=== PATIENT | male | born 1965 | race Caucasian/White ===

== ENCOUNTER 2016-12-19 12:47 | Outpatient (CLI) | payer OTHER | END 2016-12-19 12:48 | disposition home or self-care (01) | DX: I10 Essential (primary) hypertension (principal); R06.00 Dyspnea, unspecified; R07.9 Chest pain, unspecified ==

== ENCOUNTER 2016-12-26 10:55 | Outpatient (CLI) | payer OTHER | END 2016-12-26 10:56 | disposition home or self-care (01) | DX: R06.00 Dyspnea, unspecified (principal); R07.9 Chest pain, unspecified ==

== ENCOUNTER 2017-07-31 21:37 | Outpatient (CLI) | payer OTHER | END 2017-07-31 21:38 | disposition critical access hospital (66) | LOC: EMS 21:37 | PROVIDERS: ATTEND Surgery | DX: R07.9 Chest pain, unspecified (principal); R06.02 Shortness of breath | CPT/HCPCS: A0425; A0427 ==

== ENCOUNTER 2017-07-31 22:00 | Emergency (ER) | payer OTHER ==
[2017-07-31] MEDS ORDERED: ASPIRIN CHEW 81 MG TABLET PO STA (22:08)
[2017-07-31 22:23] LABS: BASOPHILS % (AUTO) 0.4 %; EOSINOPHILS # (AUTO) 0.3 10^3/uL (0.0-0.7); EOSINOPHILS % (AUTO) 3.2 %; HCT - HEMATOCRIT 46.4 % (42.0-52.0); HGB - HEMOGLOBIN 15.7 g/dL (14.0-18.0); LYMPHOCYTES # (AUTO) 2.4 10^3/uL (1.5-3.5); LYMPHOCYTES % (AUTO) 23.9 %; MEAN CORPUSCULAR HEMOGLOBIN 30.7 pg (27.0-31.0); MEAN CORPUSCULAR HGB CONC 33.9 g/dL (32.0-36.0); MEAN CORPUSCULAR VOLUME 90.5 fL (80.0-94.0); MEAN PLATELET VOLUME 8.8 fL (7.4-11.4); MONOCYTES # (AUTO) 1.1 10^3/uL (0.0-1.0); MONOCYTES % (AUTO) 10.9 %; NEUTROPHILS # (AUTO) 6.2 10^3/uL (1.5-6.6); NEUTROPHILS % (AUTO) 61.6 %; RED BLOOD COUNT 5.13 10^6/uL (4.70-6.10); RED CELL DISTRIBUTION WIDTH 12.5 % (12.0-15.0)
[2017-07-31] MEDS ORDERED: ASPIRIN CHEW 81 MG TABLET ONE (22:23)
--- NOTE | 2017-07-31 22:29 | ED Physician Documentation ---
PD HPI CHEST PAIN - Stated complaint Stated Complaint: CP/PALP - Chief complaint Chief Complaint: Cardiac - History obtained from History obtained from: Patient, EMS - History of Present Illness Timing - onset: How many hours ago (1) Timing - onset during: Rest Timing - details: Abrupt onset, Now resolved Quality: Pressure, Indigestion Location: Substernal Improved by: Rest Worsened by: No: Exertion, Inspiration, Eating, Movement, Palpation, Position Associated symptoms: Shortness of air Similar symptoms before: Has not had sx before Recently seen: Not recently seen - Additional information Additional information: Patient is a 52 year old male with a 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 Patient states that tonight he had an episode of chest pressure and palpitations. Patient called ems. Patient states that the sensation is like have a burp that wont come up. Patient states that he had something like this once before but nothing came of it. Patient does admit to drinking every day and states that his last drink was earlier today. Review of Systems Constitutional: denies: Fever, Chills Eyes: denies: Decreased vision Ears: reports: Reviewed and negative Nose: reports: Reviewed and negative Throat: denies: Dental pain / toothache, Sore throat Cardiac: reports: Chest pain / pressure, Palpitations. denies: Pedal edema, Calf pain Respiratory: denies: Dyspnea, Cough, Wheezing GI: denies: Abdominal Pain, Nausea, Vomiting : reports: Reviewed and negative Skin: denies: Rash, Lesions Musculoskeletal: denies: Neck pain, Back pain, Extremity pain Neurologic: denies: Generalized weakness, Focal weakness, Numbness, Headache Psychiatric: reports: Anxiety PD PAST MEDICAL HISTORY - Past Medical History Past Medical History: Yes Cardiovascular: Hypertension, High cholesterol, Arrhythmia Respiratory: None Neuro: None Endocrine/Autoimmune: None GI: Ulcers : Kidney stones HEENT: None Psych: None Musculoskeletal: Rheumatoid arthritis Derm: None Other Past Medical History: WPW - Past Surgical History Past Surgical History: Yes General: Cholecystectomy, Appendectomy HEENT: Tonsil/Adenoidectomy - Present Medications Home Medications: Ambulatory Orders Medication Instructions Recorded Confirmed Atenolol [Tenormin] 25 mg PO ONCE 05/29/13 07/31/17 Diltiazem HCl [Taztia Xt] 120 mg PO DAILY 05/29/13 07/31/17 Meloxicam 15 mg PO DAILY 05/29/13 07/31/17 - Allergies Allergies/Adverse Reactions: Allergies Allergy/AdvReac Type Severity Reaction Status Date / Time latex Allergy Mild Rash Verified 07/31/17 22:24 - Social History Does the pt smoke?: No Smoking Status: Never smoker Does the pt drink ETOH?: Yes ETOH Use: Beer Does the pt have substance abuse?: No - Immunizations Immunizations are current?: Yes - POLST Patient has POLST: No PD ED PE NORMAL - Vitals Vital signs reviewed: Yes - General General: Alert and oriented X 3 - HEENT HEENT: Atraumatic, PERRL - Neck Neck: Supple, no meningeal sign, No JVD - Cardiac Cardiac: RRR, No murmur - Respiratory Respiratory: No respiratory distress, Clear bilaterally - Abdomen Abdomen: Soft, Non tender, Non distended - Derm Derm: Normal color, Warm and dry, No rash - Extremities Extremities: No deformity, Normal ROM s pain, No edema, No calf tenderness / cord - Neuro Neuro: Alert and oriented X 3, No motor deficit, No sensory deficit, Normal speech - Psych Psych: Normal mood, Normal affect PD ED PE EXPANDED - General General: Anxious Results - Vitals Vitals: Vital Signs - 24 hr 07/31/17 07/31/17 07/31/17 22:02 22:40 22:50 Temperature 36.4 C L Heart Rate 83 83 82 Respiratory 18 16 16 Rate Blood Pressure 132/91 H 130/87 H 120/81 H O2 Saturation 100 99 96 07/31/17 08/01/17 23:31 01:04 Temperature Heart Rate 72 78 Respiratory 14 17 Rate Blood Pressure 119/83 H 117/80 O2 Saturation 96 98 Oxygen O2 Source Room air - EKG (time done) 2208 Rate: Rate (enter#) (81) Rhythm: NSR Intervals: RBBB QRS: Normal Ischemia: Normal ST segments Compare to prior EKG: Unchanged from prior EKG 0105 Rate: Rate (enter#) (73) Rhythm: NSR [place]: Normal Intervals: RBBB QRS: Normal Ischemia: Normal ST segments Compare to prior EKG: Unchanged from prior EKG - Labs Labs: Laboratory Tests 07/31/17 07/31/17 07/31/17 22:14 22:14 22:14 WBC 10.0 RBC 5.13 Hgb 15.7 Hct 46.4 MCV 90.5 MCH 30.7 MCHC 33.9 RDW 12.5 Plt Count 192 MPV 8.8 Neut # 6.2 Lymph # 2.4 [place] # 1.1 H Eos # 0.3 Baso # 0.0 Absolute Nucleated RBC 0.00 Nucleated RBC % 0.0 Sodium 139 Potassium 3.8 Chloride 105 Carbon Dioxide 24 Anion Gap 10.0 BUN 17 Creatinine 0.9 Estimated GFR (MDRD) 89 Glucose 94 Calcium 9.3 Phosphorus 1.9 L Magnesium 2.4 Total Bilirubin 0.8 AST 36 ALT 41 Alkaline Phosphatase 56 Troponin I < 0.04 B-Natriuretic Peptide Total Protein 7.5 Albumin 4.4 Globulin 3.1 Albumin/Globulin Ratio 1.4 Lipase 54 H TSH Ethyl Alcohol 07/31/17 07/31/17 07/31/17 22:14 22:14 22:14 WBC RBC Hgb Hct MCV MCH MCHC RDW Plt Count MPV Neut # Lymph # [place] # Eos # Baso # Absolute Nucleated RBC Nucleated RBC % Sodium Potassium Chloride Carbon Dioxide Anion Gap BUN Creatinine Estimated GFR (MDRD) Glucose Calcium Phosphorus Magnesium Total Bilirubin AST ALT Alkaline Phosphatase Troponin I B-Natriuretic Peptide 12 Total Protein Albumin Globulin Albumin/Globulin Ratio Lipase TSH 1.05 Ethyl Alcohol < 5.0 08/01/17 00:48 WBC RBC Hgb Hct MCV MCH MCHC RDW Plt Count MPV Neut # Lymph # [place] # Eos # Baso # Absolute Nucleated RBC Nucleated RBC % Sodium Potassium Chloride Carbon Dioxide Anion Gap BUN Creatinine Estimated GFR (MDRD) Glucose Calcium Phosphorus Magnesium Total Bilirubin AST ALT Alkaline Phosphatase Troponin I < 0.04 B-Natriuretic Peptide Total Protein Albumin Globulin Albumin/Globulin Ratio Lipase TSH Ethyl Alcohol PD MEDICAL DECISION MAKING - ED course Complexity details: reviewed old records, reviewed results, re-evaluated patient , considered differential, d/w patient, d/w family ED course: Patient was seen and examined at bedside. IV access was gained and labs were drawn. ekg was performed which showed a rbbb, which was present on previous ekgs. patient's work-up including repeat 3 hour troponin and ekg were within normal limits. Patient was heart score of 1 and was stable for discharge and outpatient follow up. Departure - Departure Disposition: 01 Home, Self Care Clinical Impression: Chest pain Condition: Good Instructions: ED Chest Pain Atypical Unkn Cause Follow-Up: Everette So MD [Primary Care Provider] - Within 3 Days Comments: Your diagnostics today were within normal limits. this indicates that your pain being cardiac in nature is less likely. that being said it is only a snapshot in time and further outpatient work up may be necessary. You should follow up with your doctor in the next few days to schedule and echocardiogram and a stress test. You should return to the emergency department at any time for new, worsening or uncontrollable symptoms. Also your phosphorus was low and you should start taking a multivitamin.
[2017-07-31 22:34] LABS: ALBUMIN/GLOBULIN RATIO 1.4 (1.0-2.2); BILIRUBIN,TOTAL 0.8 mg/dL (0.2-1.0); CALCIUM 9.3 mg/dL (8.5-10.3); CREATININE 0.9 mg/dL (0.6-1.2); MAGNESIUM 2.4 mg/dL (1.7-2.8); PHOSPHORUS 1.9 mg/dL (2.5-4.6); POTASSIUM 3.8 mmol/L (3.5-5.0); TOTAL PROTEIN 7.5 g/dL (6.7-8.2)
[2017-07-31] MEDS ORDERED: NITROGLYCERIN SL 0.4 MG TABLET SL STA (22:37)
[2017-07-31] MEDS ORDERED: NITROGLYCERIN SL 0.4 MG TABLET SL ONE (22:43)
[2017-07-31] MEDS ORDERED: LORazepam 2 MG/ML SYRINGE IVP STA (22:45)
--- NOTE | 2017-07-31 22:49 | XRAY Preliminary Report ---
Exam: XR CHEST 2 VIEW PA/LAT IMPRESSION: Normal 2-view chest radiography. [facility] SITE ID: [id number]
[2017-07-31] MEDS ORDERED: LORazepam 2 MG/ML SYRINGE ONE (23:06)
[2017-07-31] MEDS ORDERED: SODIUM CHLORIDE FLUSH 0.9% 10 ML SYRINGE IVP ONE (23:07)
--- NOTE | 2017-07-31 23:19 | XRAY Report ---
EXAM: CHEST RADIOGRAPHY EXAM DATE: 07/31/2017 10:36 PM. CLINICAL HISTORY: Chest pressure. COMPARISON: None. TECHNIQUE: 2 views. FINDINGS: Lungs/Pleura: No focal opacities evident. No pleural effusion. No pneumothorax. Normal volumes. Mediastinum: Heart and mediastinal contours are unremarkable. Other: None. IMPRESSION: Normal 2-view chest radiography. [facility] Referring Provider Line: [phone] SITE ID: [id number]
[2017-08-01 01:44] VITALS: BP 122/81
== END 2017-08-01 01:35 | disposition home or self-care (01) ==
LOC: EDUNIT# → ED 22:00
DX: R07.9 Chest pain, unspecified (principal); I45.10 Unspecified right bundle-branch block; I10 Essential (primary) hypertension; E78.00 Pure hypercholesterolemia, unspecified; I45.6 Pre-excitation syndrome
CPT/HCPCS: 36415; 71020; 80053; 80320; 83690; 83735; 83880; 84100; 84443; 84484; 85025; 93005; 96374; 99284; 99285; A9270; J2060

== ENCOUNTER 2019-07-12 16:00 | Outpatient (CLI) | payer OTHER ==
[2019-07-12 18:44] LABS: BILIRUBIN,URINE NEGATIVE (NEGATIVE); GLUCOSE, URINE (UA) NEGATIVE (NEGATIVE); KETONES,URINE (UA) 15 mg/dL (NEGATIVE); LEUKOCYTE ESTERASE, URINE NEGATIVE (NEGATIVE); NITRITE,URINE NEGATIVE (NEGATIVE); OCCULT BLOOD,URINE MODERATE (NEGATIVE); PROTEIN,URINE NEGATIVE (NEGATIVE); UROBILINOGEN,URINE 0.2 (NORMAL) E.U./dL (NORMAL)
[2019-07-12 19:17] LABS: CLARITY,URINE HAZY (CLEAR)
[2019-07-12 19:27] LABS: BACTERIA,URINE None Seen /HPF (None Seen); SQUAMOUS EPITHELIAL CELL,UR NONE SEEN (<= Few)
== END 2019-07-12 23:59 | disposition home or self-care (01) ==
LOC: LAB.R 16:00
PROVIDERS: ATTEND Physician Assistant Medical
DX: R30.0 Dysuria (principal)
CPT/HCPCS: 81001; 81003; 87086

== ENCOUNTER 2019-07-14 09:57 | Outpatient (CLI) | payer OTHER ==
[2019-07-14 12:13] LABS: BASOPHILS # (AUTO) 0.1 10^3/uL (0.0-0.1); BASOPHILS % (AUTO) 0.6 %; EOSINOPHILS # (AUTO) 0.3 10^3/uL (0.0-0.7); EOSINOPHILS % (AUTO) 3.7 %; LYMPHOCYTES # (AUTO) 2.5 10^3/uL (1.5-3.5); LYMPHOCYTES % (AUTO) 29.9 %; MEAN CORPUSCULAR HEMOGLOBIN 30.1 pg (27.0-31.0); MEAN CORPUSCULAR HGB CONC 33.1 g/dL (32.0-36.0); MEAN PLATELET VOLUME 11.3 fL (7.4-11.4); MONOCYTES % (AUTO) 11.6 %; NEUTROPHILS # (AUTO) 4.5 10^3/uL (1.5-6.6); PLT - PLATELET COUNT 203 10^3/uL (130-450); RED BLOOD COUNT 5.64 10^6/uL (4.70-6.10); WHITE BLOOD COUNT 8.3 x10^3/uL (4.8-10.8)
[2019-07-14 12:23] LABS: BILIRUBIN,URINE NEGATIVE (NEGATIVE); GLUCOSE, URINE (UA) NEGATIVE (NEGATIVE); KETONES,URINE (UA) NEGATIVE (NEGATIVE); LEUKOCYTE ESTERASE, URINE NEGATIVE (NEGATIVE); NITRITE,URINE NEGATIVE (NEGATIVE); OCCULT BLOOD,URINE TRACE-INTA (NEGATIVE); PROTEIN,URINE 30 mg/dL (NEGATIVE); UROBILINOGEN,URINE 0.2 (NORMAL) E.U./dL (NORMAL)
[2019-07-14 12:24] LABS: CLARITY,URINE CLEAR (CLEAR)
[2019-07-14 12:32] LABS: CALCIUM 9.3 mg/dL (8.5-10.3); CREATININE 1.1 mg/dL (0.6-1.2)
[2019-07-14 12:35] LABS: BACTERIA,URINE Rare /HPF (None Seen); MUCUS,URINE Moderate Strands; SQUAMOUS EPITHELIAL CELL,UR RARE Squamous (<= Few)
== END 2019-07-14 23:59 | disposition home or self-care (01) ==
LOC: LAB.N 09:57
PROVIDERS: ATTEND Physician Assistant Medical
DX: R31.9 Hematuria, unspecified (principal); R30.0 Dysuria
CPT/HCPCS: 36415; 80048; 81001; 81003; 84153; 85025; 87086

== ENCOUNTER 2019-10-04 15:55 | Outpatient (CLI) | payer OTHER ==
--- NOTE | 2019-10-05 12:37 | XRAY Report ---
Reason: RIB PAIN LEFT SIDED Procedure Date: 10/04/2019 Accession Number: [id number] / [id number] Procedure: XRN - Ribs w/PA Chest LT CPT Code: Final Report FULL RESULT: EXAM: LEFT RIB RADIOGRAPHY EXAM DATE: 10/04/2019 04:13 PM. CLINICAL HISTORY: Rib pain, left-sided. COMPARISON: CHEST 2 VIEW PA/LAT 07/31/2017 10:09 PM. TECHNIQUE: 1 view of the chest and 2 views of the ribs. FINDINGS: Bones: The area of clinical concern is marked with a BB, no osseous abnormality is seen. No fracture or bone lesion. Lungs: No focal opacities. No pneumothorax. No pleural effusions. Mediastinum: Heart and mediastinal contours are unremarkable. Other: None. IMPRESSION: No displaced fracture is identified. [facility]
== END 2019-10-04 15:56 | disposition home or self-care (01) ==
LOC: DI.N 15:55
PROVIDERS: ATTEND Nurse Practitioner Gerontology
DX: R07.81 Pleurodynia (principal)

== ENCOUNTER 2019-10-28 10:05 | Outpatient (CLI) | payer OTHER ==
--- NOTE | 2019-10-28 10:54 | XRAY Report ---
Reason: RIB PAIN,LEFT SIDED Procedure Date: 10/28/2019 Accession Number: [id number] / [id number] Procedure: XR - Ribs w/PA Chest LT CPT Code: Final Report FULL RESULT: EXAM: LEFT RIB RADIOGRAPHY EXAM DATE: 10/28/2019 10:29 AM. CLINICAL HISTORY: RIB PAIN,LEFT SIDED. COMPARISON: RIBS W/PA CHEST LT 10/04/2019 4:17 PM. TECHNIQUE: 1 view of the chest and 2 views of the ribs. FINDINGS: Bones: The eighth rib thinner likely congenital No fracture or bone lesion. Lungs: No focal opacities. No pneumothorax. No pleural effusions. Mediastinum: Heart and mediastinal contours are unremarkable. Other: None. IMPRESSION: Normal chest . No rib fracture [facility]
== END 2019-10-28 10:06 | disposition home or self-care (01) ==
LOC: DI 10:05
PROVIDERS: ATTEND Family Medicine
DX: R07.81 Pleurodynia (principal)

== ENCOUNTER 2020-04-16 23:14 | Outpatient (CLI) | payer OTHER | END 2020-04-16 23:15 | disposition critical access hospital (66) | LOC: EMS 23:14 | PROVIDERS: ATTEND Surgery | DX: R07.89 Other chest pain (principal); R06.02 Shortness of breath | CPT/HCPCS: A0425; A0427 ==

== ENCOUNTER 2020-04-16 23:39 | Emergency (ER) | payer OTHER ==
[2020-04-16] MEDS ORDERED: SODIUM CHLORIDE 0.9% 1,000 ML IV STA (23:57)
[2020-04-17 00:03] LABS: BASOPHILS % (AUTO) 0.5 %; EOSINOPHILS # (AUTO) 0.3 10^3/uL (0.0-0.7); HGB - HEMOGLOBIN 15.6 g/dL (14.0-18.0); LYMPHOCYTES # (AUTO) 3.2 10^3/uL (1.5-3.5); LYMPHOCYTES % (AUTO) 37.5 %; MEAN CORPUSCULAR HEMOGLOBIN 31.5 pg (27.0-31.0); MEAN CORPUSCULAR HGB CONC 34.8 g/dL (32.0-36.0); MEAN CORPUSCULAR VOLUME 90.5 fL (80.0-94.0); MEAN PLATELET VOLUME 10.5 fL (7.4-11.4); NEUTROPHILS # (AUTO) 3.9 10^3/uL (1.5-6.6); NEUTROPHILS % (AUTO) 45.8 %; PLT - PLATELET COUNT 184 10^3/uL (130-450); RED BLOOD COUNT 4.95 10^6/uL (4.70-6.10); RED CELL DISTRIBUTION WIDTH 11.8 % (12.0-15.0); WHITE BLOOD COUNT 8.6 x10^3/uL (4.8-10.8)
[2020-04-17 00:13] LABS: ALBUMIN 4.3 g/dL (3.2-5.5); ALBUMIN/GLOBULIN RATIO 1.5 (1.0-2.2); BILIRUBIN,TOTAL 0.8 mg/dL (0.2-1.0); CALCIUM 8.7 mg/dL (8.5-10.3); CREATININE 0.9 mg/dL (0.6-1.2); TOTAL PROTEIN 7.2 g/dL (6.7-8.2)
--- NOTE | 2020-04-17 00:51 | ED Physician Documentation ---
PD HPI CHEST PAIN - Stated complaint Stated Complaint: CHEST DISCOMFORT - Chief complaint Chief Complaint: Cardiac - History obtained from History obtained from: Patient - Additional information Additional information: Patient comes emergency department this evening complaining of palpitations and then chest pain. Patient states he began feeling the palpitations around 1600 and they lasted on and off for several hours. Patient states he awoke around 2200 with a pain in his left axillary area. He states the pain did not go anywhere else. He states he felt "flushed" but did not notice actual di aphoresis. No nausea or vomiting. Patient states that when he gets palpitations it makes him feel as though he needs to catch his breath but that otherwise, he does not feel short of breath per se. 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 Patient states that he has not had any further rhythm problems since. He also has a history of Raynolds phenomenon. Between these 2 medical problems, he takes both atenolol and diltiazem, and he states this keeps his blood pressure low. He states he does not have an official diagnosis, though his doctor suspects that he may have underlying hypertension which is masked by the medications he is on. Patient denies diabetes. He states he does not have any history of coronary artery disease. His last stress test was about 5 years ago and this was negative. Patient states that his pain is a 2 out of 10 currently and that it is dull. Nothing seems to make it better or worse. Patient denies any dyspnea on exertion. No fevers or chills. No cough. No other complaints at this time. He states that his palpitations ceased when he got to the emergency department. Medics state that they noticed intermittent PVCs on the monitor during transport. Review of Systems Ten Systems: 10 systems reviewed and negative Constitutional: reports: Reviewed and negative Eyes: reports: Reviewed and negative Ears: reports: Reviewed and negative Nose: reports: Reviewed and negative Throat: reports: Reviewed and negative Cardiac: reports: Chest pain / pressure, Palpitations Respiratory: reports: Reviewed and negative GI: reports: Reviewed and negative : reports: Reviewed and negative Skin: reports: Reviewed and negative Musculoskeletal: reports: Reviewed and negative Neurologic: reports: Reviewed and negative Psychiatric: reports: Reviewed and negative Endocrine: reports: Reviewed and negative Immunocompromised: reports: Reviewed and negative PD PAST MEDICAL HISTORY - Past Medical History Past Medical History: Yes Cardiovascular: Hypertension, High cholesterol, Arrhythmia, Other Respiratory: None Endocrine/Autoimmune: None GI: Ulcers : Kidney stones HEENT: None Psych: None Musculoskeletal: Rheumatoid arthritis Derm: None Other Past Medical History: WPW; RBBB - Past Surgical History Past Surgical History: Yes General: Cholecystectomy, Appendectomy HEENT: Tonsil/Adenoidectomy - Present Medications Home Medications: Ambulatory Orders Medication Instructions Recorded Confirmed Diltiazem HCl [Taztia Xt] 120 mg PO DAILY 05/29/13 04/16/20 Meloxicam 15 mg PO DAILY 05/29/13 04/16/20 atenoloL [Tenormin] 25 mg PO ONCE 05/29/13 04/16/20 - Allergies Allergies/Adverse Reactions: Allergies Allergy/AdvReac Type Severity Reaction Status Date / Time latex Allergy Mild Rash Verified 04/16/20 23:48 - Social History Does the pt smoke?: No Smoking Status: Never smoker Does the pt drink ETOH?: Yes Does the pt have substance abuse?: No - Immunizations Immunizations are current?: Yes - POLST Patient has POLST: No PD ED PE NORMAL - Vitals Vital signs reviewed: Yes - General General: Alert and oriented X 3, No acute distress - HEENT HEENT: Atraumatic, PERRL, EOMI, Moist mucous membranes - Neck Neck: Supple, no meningeal sign - Cardiac Cardiac: RRR, No murmur, Strong equal pulses - Respiratory Respiratory: No respiratory distress, Clear bilaterally - Abdomen Abdomen: Soft, Non tender, Non distended - Derm Derm: Normal color, Warm and dry, No rash - Extremities Extremities: No deformity, No edema, No calf tenderness / cord - Neuro Neuro: Alert and oriented X 3, 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 No: T wave inversion Compare to prior EKG: Old EKG unavailable Computer interpretation: Agree with computer - Labs Labs: Laboratory Tests 04/16/20 04/16/20 04/16/20 23:56 23:56 23:56 WBC 8.6 RBC 4.95 Hgb 15.6 Hct 44.8 MCV 90.5 MCH 31.5 H MCHC 34.8 RDW 11.8 L Plt Count 184 MPV 10.5 Neut # (Auto) 3.9 Lymph # (Auto) 3.2 [place] # (Auto) 1.0 Eos # (Auto) 0.3 Baso # (Auto) 0.0 Absolute Nucleated RBC 0.00 Nucleated RBC % 0.0 Sodium 136 Potassium 3.6 Chloride 106 Carbon Dioxide 21 Anion Gap 9.0 BUN 17 Creatinine 0.9 Estimated GFR (MDRD) 88 L Glucose 102 H Calcium 8.7 Total Bilirubin 0.8 AST 27 ALT 33 Alkaline Phosphatase 51 Troponin I High Sens 2.9 Total Protein 7.2 Albumin 4.3 Globulin 2.9 Albumin/Globulin Ratio 1.5 Lipase 48 04/17/20 01:19 WBC RBC Hgb Hct MCV MCH MCHC RDW Plt Count MPV Neut # (Auto) Lymph # (Auto) [place] # (Auto) Eos # (Auto) Baso # (Auto) Absolute Nucleated RBC Nucleated RBC % Sodium Potassium Chloride Carbon Dioxide Anion Gap BUN Creatinine Estimated GFR (MDRD) Glucose Calcium Total Bilirubin AST ALT Alkaline Phosphatase Troponin I High Sens 3.0 Total Protein Albumin Globulin Albumin/Globulin Ratio Lipase - Rads (name of study) chest xr Radiology: Final report received, EMP read indepedently, See rad report (Final radiologist interpretation: No significant abnormalities.) PD MEDICAL DECISION MAKING - ED course Complexity details: reviewed results, re-evaluated patient, considered differential, d/w patient ED course: Patient was worked up with labs, chest x-ray, and EKG, all of which were unremarkable initially. Repeat troponin was drawn and negative. Departure - Departure Disposition: 01 Home, Self Care Clinical Impression: Palpitations Chest pain Qualifiers: Chest pain type: unspecified Qualified Code(s): R07.9 - Chest pain, unspecified Condition: Stable Instructions: ED Chest Pain Atypical Unkn Cause, ED Palpitations Comments: Your labs, EKG, and chest x-ray all look good. No emergent cause of your pain has been found tonight. Please follow-up with your primary care physician to discuss having a repeat stress test done.
[2020-04-17 01:46] VITALS: BP 127/89
--- NOTE | 2020-04-17 09:48 | XRAY Report ---
PROCEDURE: Chest 1 View X-Ray INDICATIONS: Chest pain TECHNIQUE: One view of the chest was acquired. COMPARISON: Rib x-ray 10/18/2019 FINDINGS: Surgical changes and devices: None. Lungs and pleura: No pleural effusions or pneumothorax. Lungs are clear. Mediastinum: Mediastinal contours appear normal. Heart size is normal. Bones and chest wall: No suspicious bony lesions. Overlying soft tissues appear unremarkable. IMPRESSION: No acute pulmonary process. The above findings are concordant with preliminary report. Reviewed by: Maddy Licea MD on 04/17/2020 9:47 AM PDT Approved by: Maddy Licea MD on 04/17/2020 9:47 AM PDT Station ID: [id number]
== END 2020-04-17 02:05 | disposition home or self-care (01) ==
LOC: EDUNIT# → ED 23:39
DX: R07.9 Chest pain, unspecified (principal); R00.2 Palpitations; I45.10 Unspecified right bundle-branch block
CPT/HCPCS: 36415; 71045; 80053; 83690; 84484; 85025; 93005; 96360; 99284

== ENCOUNTER 2021-02-12 22:11 | Emergency (ER) | payer OTHER ==
[2021-02-12 22:35] LABS: BASOPHILS % (AUTO) 0.3 %; EOSINOPHILS # (AUTO) 0.2 10^3/uL (0.0-0.7); EOSINOPHILS % (AUTO) 2.1 %; HCT - HEMATOCRIT 48.5 % (42.0-52.0); HGB - HEMOGLOBIN 16.3 g/dL (14.0-18.0); LYMPHOCYTES # (AUTO) 2.4 10^3/uL (1.5-3.5); LYMPHOCYTES % (AUTO) 26.9 %; MEAN CORPUSCULAR HEMOGLOBIN 30.6 pg (27.0-31.0); MEAN CORPUSCULAR HGB CONC 33.6 g/dL (32.0-36.0); MEAN CORPUSCULAR VOLUME 91.2 fL (80.0-94.0); MEAN PLATELET VOLUME 10.7 fL (7.4-11.4); MONOCYTES # (AUTO) 1.1 10^3/uL (0.0-1.0); MONOCYTES % (AUTO) 12.7 %; NEUTROPHILS # (AUTO) 5.1 10^3/uL (1.5-6.6); NEUTROPHILS % (AUTO) 57.7 %; PLT - PLATELET COUNT 192 10^3/uL (130-450); RED BLOOD COUNT 5.32 10^6/uL (4.70-6.10); RED CELL DISTRIBUTION WIDTH 11.9 % (12.0-15.0); WHITE BLOOD COUNT 8.8 x10^3/uL (4.8-10.8)
[2021-02-12 22:54] LABS: ALBUMIN 4.7 g/dL (3.2-5.5); ALBUMIN/GLOBULIN RATIO 1.5 (1.0-2.2); BILIRUBIN,TOTAL 1.2 mg/dL (0.2-1.0); CALCIUM 9.8 mg/dL (8.5-10.3); POTASSIUM 3.6 mmol/L (3.5-5.0); TOTAL PROTEIN 7.8 g/dL (6.7-8.2)
--- NOTE | 2021-02-12 23:50 | ED Physician Documentation ---
PD HPI ABD PAIN - Stated complaint Stated Complaint: CHEST/ABD PX - Chief complaint Chief Complaint: Abd Pain - History obtained from History obtained from: Patient - History of Present Illness Timing - onset: How many days ago (several) Timing - duration: Days (several) Timing - details: Gradual onset, Still present, Waxing and waning Quality: Aching, Indigestion, Pain Location: Epigastric Radiation: Chest Improved by: No: Eating Worsened by: Eating, Palpation (epigastric area), Other (not with exertion). No: Moving, Breathing Associated symptoms: Nausea, Vomiting (one today). No: Fever, Hematemesis, Diarrhea, Constipation, Melena Similar symptoms before: Has not had sx before Recently seen: Not recently seen Review of Systems Constitutional: denies: Fever, Chills Nose: denies: Rhinorrhea / runny nose, Congestion Throat: denies: Sore throat Cardiac: reports: Chest pain / pressure (from epigastric area, worse with eating). denies: Palpitations, Pedal edema, Calf pain Respiratory: denies: Dyspnea, Cough GI: reports: Abdominal Pain, Nausea (for few days), Vomiting (once today). denies: Constipation, Diarrhea, Bloody / black stool Skin: denies: Rash, Lesions Neurologic: denies: Generalized weakness, Near syncope Endocrine: denies: Weight loss PD PAST MEDICAL HISTORY - Past Medical History Cardiovascular: Hypertension, High cholesterol, Arrhythmia, Other Respiratory: None Endocrine/Autoimmune: None GI: Ulcers : Kidney stones HEENT: None Psych: None Musculoskeletal: Rheumatoid arthritis Derm: None - Past Surgical History Past Surgical History: Yes General: Cholecystectomy, Appendectomy HEENT: Tonsil/Adenoidectomy - Present Medications Home Medications: Ambulatory Orders Medication Instructions Recorded Confirmed Diltiazem HCl [Taztia Xt] 120 mg PO DAILY 05/29/13 04/16/20 Meloxicam 15 mg PO DAILY 05/29/13 04/16/20 atenoloL [Tenormin] 25 mg PO DAILY 05/29/13 04/16/20 Famotidine [Pepcid] 20 mg PO BID #40 tablet 02/13/21 HYDROcod/ACETAM 5/325 [[place] 5/325] 1 ea PO Q6H PRN #14 tablet 02/13/21 Lidocaine Viscous 2% [Xylocaine 5 ml PO Q4H PRN #100 ml 02/13/21 Viscous 2%] Sucralfate [Carafate] 1 gm PO ACHS #60 tablet 02/13/21 - Allergies Allergies/Adverse Reactions: Allergies Allergy/AdvReac Type Severity Reaction Status Date / Time latex Allergy Mild Rash Verified 02/12/21 22:18 - Social History Does the pt smoke?: No Smoking Status: Never smoker Does the pt drink ETOH?: Yes Does the pt have substance abuse?: No - Immunizations Immunizations are current?: Yes - POLST Patient has POLST: No PD ED PE NORMAL - Vitals Vital signs reviewed: Yes - General General: Alert and oriented X 3, No acute distress, Well developed/nourished - HEENT HEENT: Moist mucous membranes, Pharynx benign - Neck Neck: Supple, no meningeal sign, No adenopathy - Cardiac Cardiac: RRR, No murmur - Respiratory Respiratory: Clear bilaterally - Abdomen Abdomen: Normal bowel sounds, Soft, Non distended, No organomegaly, Other (tender epigastric area without guarding, percussion, nor rebound. prior appy scar noted, and he states s/p CCY.) - Back Back: No CVA TTP - Derm Derm: Normal color, Warm and dry - Extremities Extremities: No tenderness to palpate, Normal ROM s pain, No edema, No calf tenderness / cord - Neuro Neuro: Alert and oriented X 3, No motor deficit, Normal speech Results - Vitals Vitals: Vital Signs - 24 hr 02/12/21 02/12/21 02/13/21 22:13 23:54 01:03 Temperature 35.9 C L Heart Rate 67 61 65 Respiratory 18 12 14 Rate Blood Pressure 136/86 H 123/95 H 119/91 H O2 Saturation 100 100 96 Oxygen O2 Source Room air - EKG (time done) 22:20 Rate: Rate (enter#) (78) Rhythm: NSR Intervals: Normal [place], RBBB Ischemia: Non specific changes Compare to prior EKG: Unchanged from prior EKG (April 2020) - Labs Labs: Laboratory Tests 02/12/21 02/12/21 02/12/21 22:31 22:31 22:31 WBC 8.8 RBC 5.32 Hgb 16.3 Hct 48.5 MCV 91.2 MCH 30.6 MCHC 33.6 RDW 11.9 L Plt Count 192 MPV 10.7 Neut # (Auto) 5.1 Lymph # (Auto) 2.4 [place] # (Auto) 1.1 H Eos # (Auto) 0.2 Baso # (Auto) 0.0 Absolute Nucleated RBC 0.00 Nucleated RBC % 0.0 Sodium 143 Potassium 3.6 Chloride 105 Carbon Dioxide 29 Anion Gap 9.0 BUN 17 Creatinine 1.0 Estimated GFR (MDRD) 78 L Glucose 95 Calcium 9.8 Total Bilirubin 1.2 H AST 27 ALT 35 Alkaline Phosphatase 54 Troponin I High Sens 4.2 Total Protein 7.8 Albumin 4.7 Globulin 3.1 Albumin/Globulin Ratio 1.5 Lipase 48 - Rads (name of study) chest xray Radiology: Prelim report reviewed (no acute process), See rad report PD MEDICAL DECISION MAKING - ED course Complexity details: re-evaluated patient (improved with GI cocktail. ), considered differential (seems gastritis/ulcer. s/p CCY and normal labs so does not seem CBD blockage nor pancreatitis. No lower abd pain nor tenderness. ), d/w patient Departure - Departure Disposition: Home, Self Care Clinical Impression: Upper abdominal pain Acute gastritis Qualifiers: Gastritis type: unspecified gastritis Gastritis bleeding: without bleeding Qualified Code(s): K29.00 - Acute gastritis without bleeding Condition: Stable Record reviewed to determine appropriate education?: Yes Instructions: ED PUD Vs Gastritis Follow-Up: Thi Renee PA-C [Primary Care Provider] - Prescriptions: Sucralfate [Carafate] 1 gm PO ACHS #60 tablet HYDROcod/ACETAM 5/325 [[place] 5/325] 1 ea PO Q6H PRN #14 tablet PRN Reason: Pain Famotidine [Pepcid] 20 mg PO BID #40 tablet Lidocaine Viscous 2% [Xylocaine Viscous 2%] 5 ml PO Q4H PRN #100 ml PRN Reason: Pain Comments: [place] food and frequent fluids. Use famotidine acid reducing medicine twice daily for the next few weeks. You could also use Carafate/sucralfate 3-4 times a day to help coat the stomach a little better as well. Add Tylenol if needed for pains every 4-6 hours. Do not use any anti-inflammatories. Avoid caffeine alcohol and spicy foods. Add antacid such as Maalox or Mylanta and to that you can add lidocaine 3 to 5 mL as needed for stomach pains as well. Add hydrocodone if needed for worse pain in the short-term. Follow-up with your primary care and bring a stool sample on follow-up or to the lab nearby to test for H pylori which is a germ that could be in the stomach that causes ulcers. Discharge Date/Time: 02/13/21 01:04
[2021-02-13] MEDS ORDERED: LIDOCAINE VISCOUS 2% 15 ML UDC MM STA (00:14)
[2021-02-13] MEDS ORDERED: MAG HYDROX/AL HYDROX/SIMETH 30 ML UDC PO STA (00:14)
[2021-02-13] MEDS ORDERED: FAMOTIDINE 20 MG TABLET PO STA (00:14)
[2021-02-13] MEDS ORDERED: HYDROcod/ACET 5/325 Prepack 4 PO STA (00:14)
[2021-02-13] MEDS ORDERED: HYDROcod/ACETAM 5/325 MG TABLET PO STA (00:14)
[2021-02-13 01:04] VITALS: BP 119/91
--- NOTE | 2021-02-13 10:04 | XRAY Report ---
PROCEDURE: Chest 1 View X-Ray INDICATIONS: Chest pain TECHNIQUE: One view of the chest was acquired. COMPARISON: Chest x-ray 04/16/2020 FINDINGS: Surgical changes and devices: None. Lungs and pleura: No pleural effusions or pneumothorax. Lungs are clear. Mediastinum: Mediastinal contours appear normal. Heart size is normal. Bones and chest wall: No suspicious bony lesions. Overlying soft tissues appear unremarkable. IMPRESSION: No acute pulmonary process. The above findings are concordant with preliminary report. Reviewed by: Maddy Licea MD on 02/13/2021 10:03 AM PDT Approved by: Maddy Licea MD on 02/13/2021 10:03 AM PDT Station ID: [id number]
== END 2021-02-13 01:04 | disposition home or self-care (01) ==
LOC: ED 22:11
DX: K29.00 Acute gastritis without bleeding (principal)
CPT/HCPCS: 36415; 71045; 80053; 83690; 84484; 85025; 93005; 99284; A9270

== ENCOUNTER 2021-02-15 08:00 | Outpatient (CLI) | payer OTHER ==
[2021-02-16 18:53] LABS: H. PYLORIS ANTIGEN STL NEGATIVE (Negative)
== END 2021-02-15 23:59 | disposition home or self-care (01) ==
LOC: LAB.R 08:00
PROVIDERS: ATTEND Emergency Medicine
DX: R10.9 Unspecified abdominal pain (principal)
CPT/HCPCS: 87338

== ENCOUNTER 2024-07-01 16:50 | Emergency (ER) | payer OTHER ==
[2024-07-01 17:14] LABS: BASOPHILS % (AUTO) 0.3 %; EOSINOPHILS # (AUTO) 0.1 10^3/uL (0.0-0.7); EOSINOPHILS % (AUTO) 1.3 %; LYMPHOCYTES % (AUTO) 27.9 %; MEAN CORPUSCULAR HEMOGLOBIN 30.2 pg (27.0-31.0); MEAN CORPUSCULAR HGB CONC 33.3 g/dL (32.0-36.0); MEAN CORPUSCULAR VOLUME 90.7 fL (80.0-94.0); MEAN PLATELET VOLUME 10.5 fL (7.4-11.4); MONOCYTES # (AUTO) 0.7 10^3/uL (0.0-1.0); MONOCYTES % (AUTO) 9.6 %; NEUTROPHILS # (AUTO) 4.3 10^3/uL (1.5-6.6); NEUTROPHILS % (AUTO) 60.5 %; PLT - PLATELET COUNT 189 10^3/uL (130-450); RED BLOOD COUNT 5.62 10^6/uL (4.70-6.10); RED CELL DISTRIBUTION WIDTH 11.9 % (12.0-15.0); WHITE BLOOD COUNT 7.1 x10^3/uL (4.8-10.8)
[2024-07-01 17:28] LABS: ALBUMIN 4.4 g/dL (3.2-5.5); ALBUMIN/GLOBULIN RATIO 1.5 (1.0-2.2); BILIRUBIN,TOTAL 1.2 mg/dL (0.2-1.0); CALCIUM 9.7 mg/dL (8.5-10.3); POTASSIUM 4.2 mmol/L (3.5-4.5); TOTAL PROTEIN 7.3 g/dL (6.4-8.9)
[2024-07-01 18:09] LABS: BILIRUBIN,URINE NEGATIVE (NEGATIVE); GLUCOSE, URINE (UA) NEGATIVE (NEGATIVE); KETONES,URINE (UA) NEGATIVE (NEGATIVE); LEUKOCYTE ESTERASE, URINE NEGATIVE (NEGATIVE); NITRITE,URINE NEGATIVE (NEGATIVE); OCCULT BLOOD,URINE NEGATIVE (NEGATIVE); PH,URINE 6.5 PH (5.0-7.5); PROTEIN,URINE NEGATIVE (NEGATIVE); UROBILINOGEN,URINE 0.2 (NORMAL) E.U./dL (NORMAL)
[2024-07-01 18:14] LABS: CLARITY,URINE CLEAR (CLEAR)
[2024-07-01] MEDS: SODIUM CHLORIDE 0.9% 1,000 ML IV STA (18:51)
[2024-07-01] MEDS: ONDANSETRON 4 MG/2 ML VIAL IVP STA (19:02)
[2024-07-01] MEDS: HYDROmorphone 1 MG/ML CARPUJECT IVP STA (19:04)
[2024-07-01] MEDS: PANTOPRAZOLE 40 MG VIAL IVP STA (19:08)
--- NOTE | 2024-07-01 19:15 | ED Physician Documentation ---
PD HPI ABD PAIN - Stated complaint Stated Complaint: ABD PX - Chief complaint Chief Complaint: Abd Pain - History obtained from History obtained from: Patient - Treatment prior to arrival Treatment prior to arrival: The patient comes to the emergency department with chief complaint of upper abdominal pain and "gas". He has a history of peptic ulcer disease but very distantly and has not had any issues since. He states he gets "gas" occasionally and that it is similar but that this episode is worse. He states he has been a little nauseated but has not been vomiting. He is passing stool and gas without difficulty. He feels a lot of gurgling and wants to burp a lot. He does not have a gallbladder or an appendix. He drinks 3-4 beers every night. No tarry stools. He takes an anti-inflammatory for osteoarthritis. He is also on Prilosec. No other complaints at this time. PD PAST MEDICAL HISTORY - Past Medical History Cardiovascular: Hypertension, High cholesterol, Arrhythmia, Other Respiratory: None Endocrine/Autoimmune: None GI: Ulcers : Kidney stones HEENT: None Psych: None Musculoskeletal: Rheumatoid arthritis Derm: None - Past Surgical History Past Surgical History: Yes General: Cholecystectomy, Appendectomy Cardiovascular: Other HEENT: Tonsil/Adenoidectomy - Present Medications Home Medications: Ambulatory Orders Medication Instructions Recorded Confirmed Meloxicam 15 mg PO DAILY 05/29/13 04/16/20 atenoloL [Tenormin] 25 mg PO DAILY 05/29/13 04/16/20 dilTIAZem HCL [Taztia Xt] 120 mg PO DAILY 05/29/13 04/16/20 Famotidine [Pepcid] 20 mg PO BID #40 tablet 02/13/21 HYDROcod/ACETAM 5/325 [Musella 5/325] 1 ea PO Q6H PRN #14 tablet 02/13/21 Lidocaine Viscous 2% [Xylocaine 5 ml PO Q4H PRN #100 ml 02/13/21 Viscous 2%] Sucralfate [Carafate] 1 gm PO ACHS #60 tablet 02/13/21 HYDROcod/ACETAM 5/325 [Musella 5/325] 1 - 2 tablet PO Q6H PRN #14 tablet 07/01/24 Ondansetron Odt [Zofran] 4 mg TL Q6H PRN #10 tablet 07/01/24 - Allergies Allergies/Adverse Reactions: Allergies Allergy/AdvReac Type Severity Reaction Status Date / Time latex Allergy Mild Rash Verified 07/01/24 17:03 - Social History Does the pt smoke?: No Smoking Status: Never smoker Does the pt drink ETOH?: Yes Does the pt have substance abuse?: No - Immunizations Immunizations are current?: Yes - POLST Patient has POLST: No PD ED PE NORMAL - Vitals Vital signs reviewed: Yes - General General: Alert and oriented X 3, No acute distress, Well developed/nourished - HEENT HEENT: Atraumatic, EOMI, Moist mucous membranes - Neck Neck: Supple, no meningeal sign - Cardiac Cardiac: RRR, No murmur - Respiratory Respiratory: No respiratory distress, Clear bilaterally - Abdomen Abdomen: Soft, Non tender, Non distended, Other ( Occasional belching otherwise benign abdomen.) - Derm Derm: Warm and dry - Extremities Extremities: No deformity - Neuro Neuro: Alert and oriented X 3 - Psych Psych: Normal mood, Normal affect Results - Vitals Vitals: Vital Signs - 24 hr 07/01/24 07/01/24 07/01/24 16:57 18:15 18:34 Temperature 36.2 C L Heart Rate 78 67 Respiratory 18 16 17 Rate Blood Pressure 109/90 H O2 Saturation 98 97 07/01/24 07/01/24 18:50 19:25 Temperature 36.2 C L Heart Rate 63 72 Respiratory 16 16 Rate Blood Pressure 134/85 H 126/87 H O2 Saturation 96 97 Oxygen O2 Source Room air - Labs Labs: Laboratory Tests 07/01/24 07/01/24 07/01/24 17:10 17:10 17:58 WBC 7.1 RBC 5.62 Hgb 17.0 Hct 51.0 MCV 90.7 MCH 30.2 MCHC 33.3 RDW 11.9 L Plt Count 189 MPV 10.5 Neut # (Auto) 4.3 Lymph # (Auto) 2.0 [place] # (Auto) 0.7 Eos # (Auto) 0.1 Baso # (Auto) 0.0 Absolute Nucleated RBC 0.00 Nucleated RBC % 0.0 Sodium 138 Potassium 4.2 Chloride 105 Carbon Dioxide 27 Anion Gap 6.0 BUN 13 Creatinine 1.0 Estimated GFR (MDRD) 77 L Glucose 142 H Calcium 9.7 Total Bilirubin 1.2 H AST 32 ALT 48 Alkaline Phosphatase 55 Total Protein 7.3 Albumin 4.4 Globulin 2.9 Albumin/Globulin Ratio 1.5 Lipase 55 Urine Color YELLOW Urine Clarity CLEAR Urine pH 6.5 Ur Specific [place] 1.010 Urine Protein NEGATIVE Urine Glucose (UA) NEGATIVE Urine Ketones NEGATIVE Urine Occult Blood NEGATIVE Urine Nitrite NEGATIVE Urine Bilirubin NEGATIVE Urine Urobilinogen 0.2 (NORMAL) Ur Leukocyte Esterase NEGATIVE Ur Microscopic Review NOT INDICATED Urine Culture Comments NOT INDICATED PD Medical Decision Making - ED course Complexity details: reviewed results, re-evaluated patient, considered differential, d/w patient ED course: . The patient's laboratory studies were reassuring and his abdominal exam is benign. He was treated symptomatically with IV fluids, Zofran, and Dilaudid. Have discussed with him that he needs to make an appoint with his primary doctor who is just saw a week ago, and discuss having endoscopy done. I do not find indication for an upper abdominal ultrasound as the patient's LFTs are normal and his gallbladder is gone. Additionally, he has a normal white count and a benign abdomen and I do not feel CT will add anything to this workup. The patient is stable for discharge home. Departure - Departure Disposition: Home, Self Care Clinical Impression: Gastritis Qualifiers: Gastritis type: alcoholic Chronicity: acute Gastritis bleeding: without bleeding Qualified Code(s): K29.20 - Alcoholic gastritis without bleeding Condition: Stable Instructions: ED PUD Vs Gastritis Prescriptions: HYDROcod/ACETAM 5/325 [Musella 5/325] 1 - 2 tablet PO Q6H PRN #14 tablet PRN Reason: Pain Ondansetron Odt [Zofran] 4 mg TL Q6H PRN #10 tablet PRN Reason: Nausea / Vomiting Comments: Your laboratory studies actually look great. There is no evidence of pancreatit is or of any issues with your liver at this time. Most likely, your stomach and esophagus are inflamed. This could be from the anti-inflammatory you are on for your arthritis or from the alcohol that you drink every night. Could also be a combination. It sounds like you have had ulcers in the past which does put you at greater risk for developing them again. It is very important that you follow-up with your primary doctor to discuss having endoscopy done as this is the only way to really evaluate the stomach and esophagus. There is no emergent indication for this tonight and he will need to have this done and follow-up. Your prescriptions have been electronically transmitted to the [facility] in [place]. Please pick them up tomorrow morning. Forms: PCP List
[2024-07-01 19:28] VITALS: BP 126/87; O2SAT 97
--- NOTE | 2024-07-02 08:59 | ED Physician Documentation ---
ED Addendum - Addendum Addendum: 07/02/24 08:56 [facility] called. They needed resending of the prescription at a different dosage and Sig. I retransmitted the prescription at 7.5/325 every 6 hours #14.
== END 2024-07-01 19:45 | disposition home or self-care (01) ==
LOC: ED 16:50
DX: K29.20 Alcoholic gastritis without bleeding (principal); I10 Essential (primary) hypertension; E78.00 Pure hypercholesterolemia, unspecified; M06.9 Rheumatoid arthritis, unspecified; Z87.11 Personal history of peptic ulcer disease; Z87.442 Personal history of urinary calculi; Z79.899 Other long term (current) drug therapy
CPT/HCPCS: 36415; 80053; 81003; 83690; 85025; 96374; 96375; 99283; 99284; J1170; 81001; 87086